=== PATIENT | male | born 1975 | race Caucasian/White ===

== ENCOUNTER 2018-03-20 07:35 | Emergency (ER) | payer OTHER ==
--- NOTE | 2018-03-20 07:52 | EDPHY ---
H & P Stated Complaint: L flank pain Time Seen by Provider: 03/20/18 07:51 - Personal History Current Tetanus/Diphtheria Vaccine: Yes Current Tetanus Diphtheria and Acellular Pertussis (TDAP): Yes - Medical/Surgical History Hx Asthma: Yes Hx Chronic Respiratory Disease: No Hx Diabetes: No Hx Cardiac Disease: No Hx Renal Disease: No Hx Cirrhosis: No Hx Alcoholism: No Hx HIV/AIDS: No Hx Splenectomy or Spleen Trauma: No Other PMH: pyloric stenisis, septic hip, asthma, - Social History Smoking Status: Never smoked Constitutional: Initial Vital Signs Temperature (C) 36.9 C 03/20/18 07:38 Heart Rate 86 03/20/18 07:38 Respiratory Rate 16 03/20/18 07:38 Blood Pressure 150/94 H 03/20/18 07:38 O2 Sat (%) 95 03/20/18 07:38 O2 Delivery Mode Room Air Allergies/Adverse Reactions: No Known Allergies Allergy (Unverified 03/20/18 07:38) Home Medications: Medication Instructions Recorded Hydrocodone/APAP 5/325 [[place] 1 - 2 each PO Q4-6PRN PRN #20 tab 03/20/18 5/325] Ibuprofen [Motrin] 800 mg PO Q8 #20 tab 03/20/18 Tamsulosin HCl [Flomax 0.4 MG (*)] 0.4 mg PO DAILY #10 cap 03/20/18 Medical Decision Making - Diagnostics Imaging Results: Imaging Impressions Abdomen/Pelvis CT 03/20/18 08:01 IMPRESSION: 1. Obstructing 0.4 cm stone in the distal left ureter causing mild hydroureteronephrosis. Jass Clinton was notified of these findings by telephone at 9:35 AM on 03/20/2018 Attention: This CT examination is specifically designed to evaluate patients who are clinically suspected of having acute obstructive uropathy. This examination does not use radiographic contrast and provides only a limited evaluation of the abdomen, pelvis and retroperitoneum. If there is further clinical suspicion for pathological conditions other than obstructive uropathy, a complete CT evaluation of the abdomen and pelvis utilizing intravenous and enteric contrast should be considered. Imaging: Discussed imaging studies w/ yardage caller Radiologist, I viewed and interpreted images myself ED Course/Re-evaluation: CHIEF COMPLAINT: Left flank pain HISTORY OF PRESENT ILLNESS: The patient is a 43 y/o male with a history of asthma and pyloric stenosis complaining of worsening, radiating left flank pain onset last night. As the pain has increased he has been nauseous, felt constipated, and had difficulty urinating. This pain is aggravated while walking and when pressing on the area of pain. No fever, chest pain, shortness of breath, abdominal pain, bowel complaints, numbness or paresthesias. REVIEW OF SYSTEMS: A comprehensive 10 system review of systems is otherwise negative aside from elements mentioned in the history of present illness and medical decision making. PHYSICAL EXAM: HR, BP, O2 Sat, RR. Temp noted General Appearance: Alert, well hydrated, appropriate, and non-toxic appearing. Head: Atraumatic without scalp tenderness or obvious injury Eyes: Pupils equal, round, reactive to light and accommodation, EOMI, no trauma , no injection. Ears: Clear bilaterally, no perforation, normal landmarks Nose: Atraumatic, no rhinorrhea, clear. Throat: There is no erythema or exudates, no lesions, normal tonsils, mucus membranes moist. Neck: Supple, 2+ carotid upstroke, nontender, no lymphadenopathy. Respiratory: No retractions, no distress, no wheezes, and no accessory muscle use. Lungs are clear to auscultation bilaterally. Cardiovascular: Regular rate and rhythm, no murmurs, rubs, or gallops. Bilateral carotid, radial, dorsalis pedis, and posterior tibial pulses intact. Good capillary refill all extremities. Gastrointestinal: Left lower quadrant and left flank tenderness to palpation. Abdomen is soft, non-distended, no masses, no rebound, no guarding, no peritoneal signs. Musculoskeletal: Normal active ROM of all extremities, atraumatic. Neurological: Alert, appropriate, and interactive. The patient has normal DTRs and non-focal cranial nerves, motor, sensory, and cerebellar exam. Skin: No rashes, good turgor, no nodules on palpation. Past medical history: Septic hip, asthma Past surgical history: Pyloric stenosis Family history: Denies Social history: Lives in [place], single, does not abuse alcohol DIAGNOSTICS/PROCEDURES/CRITICAL CARE TIME: Abdominopelvic CT: 4mm left distal stone DIFFERENTIAL DIAGNOSIS: The differential diagnosis for the patient's flank pain included but was not limited to musculoskeletal causes, kidney stone, pyelonephritis, shingles, diverticulitis, appendicitis, and aortic aneurysm. MEDICAL DECISION MAKING: The patient is a 43 y/o male with a history of asthma and pyloric stenosis presenting with worsening, radiating left flank pain onset last night. On exam he has left lower quadrant and left flank tenderness to palpation. Labs, UA and abdominopelvic CT ordered; 4mg IV Zofran, 30mg IV Toradol, 1mg IV Dilaudid, and 1L IV NS administered. 0935: I spoke with the radiologist regarding patient's abdominopelvic CT; patient has a 4mm left distal stone. 1002: Reassessed patient and discussed laboratory and imaging findings. I have prescribed him Flomax, [place], and Motrin for his kidney stone. I have also advised him to follow up with a urologist. Return precautions provided; patient is comfortable with this plan. - Data Points Laboratory Results: Laboratory Results 03/20/18 08:45 03/20/18 08:45 03/20/18 03/20/18 08:45 08:45 WBC 7.58 10^3/uL 10^3/uL (3.80-9.50) RBC 5.16 10^6/uL 10^6/uL (4.40-6.38) Hgb 15.5 g/dL g/dL (13.7-17.5) Hct 46.2 % % (40.0-51.0) MCV 89.5 fL fL (81.5-99.8) MCH 30.0 pg pg (27.9-34.1) MCHC 33.5 g/dL g/dL (32.4-36.7) RDW 11.8 % % (11.5-15.2) Plt Count 291 10^3/uL 10^3/uL (150-400) MPV 9.0 fL fL (8.7-11.7) Neut % (Auto) 73.0 % % (39.3-74.2) Lymph % (Auto) 15.6 % % (15.0-45.0) [place] % (Auto) 9.5 % % (4.5-13.0) Eos % (Auto) 1.2 % % (0.6-7.6) Baso % (Auto) 0.4 % % (0.3-1.7) Nucleat RBC Rel Count 0.0 % % (0.0-0.2) Absolute Neuts (auto) 5.54 10^3/uL 10^3/uL (1.70-6.50) Absolute Lymphs (auto) 1.18 10^3/uL 10^3/uL (1.00-3.00) Absolute Monos (auto) 0.72 10^3/uL 10^3/uL (0.30-0.80) Absolute Eos (auto) 0.09 10^3/uL 10^3/uL (0.03-0.40) Absolute Basos (auto) 0.03 10^3/uL 10^3/uL (0.02-0.10) Absolute Nucleated RBC 0.00 10^3/uL 10^3/uL (0-0.01) Immature Gran % 0.3 % % (0.0-1.1) Immature Gran # 0.02 10^3/uL 10^3/uL (0.00-0.10) Sodium 138 mEq/L mEq/L (135-145) Potassium 4.1 mEq/L mEq/L (3.5-5.2) Chloride 107 mEq/L mEq/L (97-110) Carbon Dioxide 24 mEq/l mEq/l (22-31) Anion Gap 7 mEq/L mEq/L (6-14) BUN 19 mg/dL mg/dL (7-23) Creatinine 1.3 mg/dL mg/dL (0.7-1.3) Estimated GFR > 60 Glucose 191 mg/dL H mg/dL (70-100) Calcium 9.1 mg/dL mg/dL (8.5-10.4) Total Bilirubin 0.5 mg/dL mg/dL (0.1-1.4) Conjugated Bilirubin 0.3 mg/dL mg/dL (0.0-0.5) Unconjugated Bilirubin 0.2 mg/dL mg/dL (0.0-1.1) AST 46 IU/L IU/L (17-59) ALT 59 IU/L IU/L (21-72) Alkaline Phosphatase 129 IU/L H IU/L (38-126) Total Protein 7.5 g/dL g/dL (6.3-8.2) Albumin 4.0 g/dL g/dL (3.5-5.0) Lipase 74 IU/L IU/L (23-300) Medications Given: Discontinued Medications Hydromorphone HCl (Dilaudid) 1 mg IVP EDNOW ONE Stop: 03/20/18 08:01 Last Admin: 03/20/18 08:55 Dose: 1 mg Sodium Chloride (Ns) 1,000 mls @ 0 mls/hr IV EDNOW ONE; Wide Open PRN Reason: Protocol Stop: 03/20/18 08:01 Last Admin: 03/20/18 08:49 Dose: 1,000 mls Ketorolac Tromethamine (Toradol) 30 mg IVP EDNOW ONE Stop: 03/20/18 08:01 Last Admin: 03/20/18 08:55 Dose: 30 mg Ondansetron HCl (Zofran) 4 mg IVP EDNOW ONE Stop: 03/20/18 08:01 Last Admin: 03/20/18 08:55 Dose: 4 mg Departure - Departure Disposition: Home, Routine, Self-Care Clinical Impression: Kidney stone on left side Condition: Good Instructions: Hydrocodone/Acetaminophen (By mouth), Ibuprofen (By mouth), Tamsulosin (By mouth), Kidney Stones (ED), How to Strain Your Urine (ED), Flank Pain (ED) Additional Instructions: 1. Take Flomax, [place], and Motrin as prescribed. 2. Followup with your urologist within one week. 3. Return to the emergency apartment for fever, severe pain, inability to urinate or other concerns. 4. Strain urine to try and catch the kidney stone and bring this to the urology appointment. Referrals: Brielle Rocha [Primary Care Provider] - As per Instructions Linnea Mclaughlin MD [Medical Doctor] - As per Instructions Prescriptions: Hydrocodone/APAP 5/325 [[place] 5/325] 1 - 2 each PO Q4-6PRN PRN #20 tab PRN Reason: Pain, Moderate Ibuprofen [Motrin] 800 mg PO Q8 #20 tab Tamsulosin HCl [Flomax 0.4 MG (*)] 0.4 mg PO DAILY #10 cap Report Scribed for: Jass Clinton Report Scribed by: Tierney Paul Date of Report: 03/20/18 Time of Report: 07:52
[2018-03-20] MEDS ORDERED: ONDANSETRON 4 MG/2 ML VIAL IVP ONE (08:00)
[2018-03-20] MEDS ORDERED: KETOROLAC 30 MG/1 ML SDV IVP ONE (08:00)
[2018-03-20] MEDS ORDERED: NS 1,000 ML IV ONE (08:00)
[2018-03-20] MEDS ORDERED: HYDROmorphONE/DILAUDID 2 MG/ML INJ IVP ONE (08:00)
[2018-03-20 08:58] LABS: PLATELET COUNT 291 10^3/uL (150-400)
[2018-03-20 09:52] VITALS: BP 130/74
== END 2018-03-20 10:04 | disposition home or self-care (01) ==
DX: N20.0 Calculus of kidney (principal); E86.9 Volume depletion, unspecified
CPT/HCPCS: 96374; J1170; J1885; J2405